=== PATIENT | male | born 1990 | race Caucasian/White ===

== ENCOUNTER 2016-08-02 05:31 | Emergency (ER) | payer BC ==
--- NOTE | 2016-08-02 07:00 | RAD ---
CHEST 2 VIEWS: Date: 08/02/16 FINDINGS: No major lobar infiltrate or effusion seen. There may be a little linear atelectasis in the left grace g base. The retrocardiac markings are little coarser than usual, but at this point it is difficult t o confirm an infiltrate here. The lungs are otherwise clear. The trachea is midline. IMPRESSION: Minor basilar streaking. POS: HOME
--- NOTE | 2016-08-02 07:02 | RAD ---
ABDOMEN: Date: 08/02/16 FINDINGS: Supine and erect films show no free air beneath the diaphragm. The abdominal gas pattern is nonspeci fic. There are no dilated loops of bowel. A few small air fluid levels were seen in colon in the rig ht upper quadrant, but no loop is distended. There is a faint calcification in the right upper quadr ant overlying the right kidney that could be renal calculus. An elective ultrasound would be helpful to investigate. A calcification in the pelvis on the left is most likely a phlebolith. The bony str uctures appear normal. IMPRESSION: 1. Nonspecific abdominal findings. 2. Tiny right upper quadrant calcification that could be in the kidney. An elective ultrasound coul d be helpful. POS: HOME
[2016-08-02 07:06] LABS: #Basophils 0.1 thou/uL (0.0-0.2); #Eosinphils 0.3 thou/uL (0.0-0.7); #Lymphocytes 1.6 thou/uL (1.20-3.40); #Monocytes 0.9 thou/uL (0.11-0.59); #Neutrophils 5.6 thou/uL (1.40-6.50); %Basophils 1.1 % (0.0-1.0); %Monocytes 10.4 % (0.0-10.0); Hematocrit 49.5 % (42.0-52.0); Mean Platelet Volume 5.8 fL (7.4-10.4); Red Blood Cell (RBC) Count 5.78 mill/uL (4.70-6.10); White Blood Cell (WBC) Count 8.5 thou/uL (4.8-10.8)
[2016-08-02 07:07] LABS: ALT (SGPT) 28 U/L (0-55); AST (SGOT) 19 U/L (5-34); Alkaline Phosphatase 98 U/L (40-150); Anion Gap 14 mmol/L (10-20); BUN (Urea Nitrogen) 10 mg/dL (8.9-20.6); Bilirubin, Total 0.8 mg/dL (0.2-1.2); Calc. Creatinine Clearance 0 mL/min (70-130); Calcium 9.7 mg/dL (7.8-10.44); Carbon Dioxide 27 mmol/L (22-29); Estimated GFR-MDRD Greater than 90; Globulin 3.3 g/dL (2.4-3.5); Lipase 9 U/L (8-78); Protein, Total 7.7 g/dL (6.0-8.3)
[2016-08-02 07:14] LABS: Chloride 101 mmol/L (98-107)
== END 2016-08-02 07:55 | disposition home or self-care (01) ==
LOC: BURERS 05:31
DX: K29.00 Acute gastritis without bleeding (principal); J11.1 Influenza due to unidentified influenza virus with other respiratory manifestations; F31.9 Bipolar disorder, unspecified; F17.210 Nicotine dependence, cigarettes, uncomplicated
CPT/HCPCS: 71020; 74020; 80053; 82272; 83690; 85025; 99284

== ENCOUNTER 2016-08-08 08:56 | Outpatient (CLI) | payer BC ==
--- NOTE | 2016-08-08 21:48 | ULT ---
ABDOMINAL ULTRASOUND 08/08/16 Ultrasonography of the abdomen was performed for evaluation of right upper quadrant pain. The gallbladder contains a gallstone that is seen on a few views in its neck. The gallbladder wall i s thickened at about 6 mm. There is sludge in the gallbladder. The common bile duct is mildly enlarg ed at 7 mm in caliber. The liver was normal in size and continued on focal lesions. The pancreas was partially shadowed by gas, but the visible areas appear normal. The spleen is normal in size. The aorta and inferior vena cava appear normal. The right kidney is 12.9 cm in length and the left is 11.3 cm. Both appear rustam l. IMPRESSION: Findings suggestive of cholecystitis with gallstone, wall thickening, sludge and slight dilation of the common bile duct. No stones were appreciated in the duct. Code T POS: HOME
== END 2016-08-08 08:57 | disposition home or self-care (01) ==
LOC: BURULT 08:56
PROVIDERS: ATTEND Physician Assistant
DX: R10.11 Right upper quadrant pain (principal)
CPT/HCPCS: 76700